=== PATIENT | female | born 1995 | race African-American/Black ===

== ENCOUNTER 2022-08-27 14:40 | Emergency (ER) | payer BC, SELFPAY ==
--- NOTE | ~2022-08-27 | XR_ITS ---
EXAMINATION: XR knee RT min 4V DATE: 08/27/2022 16:57 INDICATION: Nontraumatic right knee pain TECHNIQUE: Anteroposterior, 2 oblique and crosstable lateral views of the right knee were obtained COMPARISON: 07/14/2016 FINDINGS: Alignment is normal. No fracture. Joint spaces appear normal on nonweightbearing imaging. No joint e ffusion/layering lipohemarthrosis. Tiny heterotopic ossicle along the posterolateral margin of the he ad of the fibula. Soft tissues are otherwise unremarkable. IMPRESSION: 1. No right knee joint effusion or osseous abnormality. Reviewed, dictated and finalized at location A.
[2022-08-27 14:42] VITALS: BP 163/106; PULSE 86; RESP 16; TEMP 36.4; O2SAT 100
--- NOTE | 2022-08-27 16:32 | ED.LOWEXIN ---
HPI - Extremity Injury (Lower) General Chief Complaint: Extremity Injury, Lower Stated Complaint: right knee injury Time Seen by Provider: 08/27/22 15:46 Source: patient Mode of arrival: ambulatory Limitations: no limitations History of Present Illness HPI Narrative: Patient is a 27-year-old female who presents to the ED with report of right knee pain. Patient reports she strained her right knee 4 to 5 years ago. She states she never fully allowed it to recover at that time and returned to work quickly afterwards. Since then, she has had intermittent pain, swelling. She has been using ice, Tylenol, ibuprofen, compression bandage without much relief. She states pain became worse on Sunday and continued to worsen over the weekend, which prompted her presentation today. She denies any further injury or fall. Denies numbness or tingling. Related Data Home Medications Medication Instructions Recorded Confirmed albuterol 08/27/22 Allergies Allergy/AdvReac Type Severity Reaction Status Date / Time No Known Allergies Allergy Unverified 03/01/18 13:22 Review of Systems Review of Systems: CONSTITUTIONAL: Denies fever, chills, or sweats. SKIN: See HPI. MUSCULOSKELETAL: See HPI. NEUROLOGIC: Denies tingling, numbness, or weakness. All systems reviewed & are unremarkable except as noted in HPI and below Exam Narrative: GENERAL: Well appearing, morbidly obese, non-toxic, in no acute distress. HEAD: Normocephalic, atraumatic. NECK: Supple. No adenopathy, no masses. RESPIRATORY: Airway patent, respirations nonlabored. CARDIOVASCULAR: Regular rate and rhythm without murmurs, rubs, or gallops. Pedal pulses 2+ and equal bilaterally. MUSCULOSKELETAL: Moves all extremities. Limited range of motion of right knee flexion due to pain. No focal tenderness throughout joint spaces, mild discomfort with ballottement of patella. No swelling noted. Sensation intact. SKIN: Warm, dry, normal color. No rashes. NEURO: A&O X3. Speech clear. Cranial nerves II-XII grossly intact. Steady gait. No ataxic movements. PSYCHIATRIC: Appropriate mood and affect. Normal interaction. Course Vital Signs Vital signs: Vital Signs Temperature 97.6 F 08/27/22 14:42 Pulse Rate 86 08/27/22 14:42 Respiratory Rate 16 08/27/22 14:42 Blood Pressure 163/106 H 08/27/22 14:42 Pulse Oximetry 100 08/27/22 14:42 Oxygen Delivery Room Air 08/27/22 14:42 Temperature 97.6 F 08/27/22 14:42 Pulse Rate 86 08/27/22 14:42 Respiratory Rate 16 08/27/22 14:42 Blood Pressure 163/106 H 08/27/22 14:42 Pulse Oximetry 100 08/27/22 14:42 Oxygen Delivery Room Air 08/27/22 14:42 MDM - Extremity Injury (Lower) MDM Narrative Medical decision making narrative: Patient's injury is consistent with musculoskeletal etiology. No signs of neurologic or vascular compromise on physical examination. Compartments are soft without signs of compartment syndrome. XR of right knee without acute findings. No signs or symptoms to suggest DVT, PERC negative. Advised knee pain likely related to arthritis, recurrent strain, musculoskeletal pain. Advised patient to continue using Gustavo compression bandage, Tylenol, ibuprofen, icing, elevating. Will provide patient with orthopedic information for follow-up for further management. Given return precautions. Patient agrees with plan. Medical Records Attestation: I reviewed the patient's medical records. Imaging Data Attestation: I personally reviewed and interpreted this imaging study as follows: Radiologist's impression: ITS Impressions Knee X-Ray 08/27/22 17:11 IMPRESSION: 1. No right knee joint effusion or osseous abnormality. Discharge Plan Discharge Clinical Impression: Recurrent pain of right knee Patient Disposition: Home, Self-Care Condition: Stable Instructions: Antibiotic Form, Knee Sprain (ED), Swollen Knee Joint (ED) Additional Instructions: Your x-
[2022-08-27] MEDS: ACETAMINOPHEN 500 MG TABLET 1000 MG PO (17:15)
== END 2022-08-27 18:06 | disposition home or self-care (01) ==
PROVIDERS: Emergency Provider Physician Assistant
DX: M25.561 Pain in right knee (principal)
CPT/HCPCS: 73564; 99283; A9270